=== PATIENT | male | born 1955 | race Caucasian/White ===

== ENCOUNTER 2018-10-04 13:16 | Day surgery (SDC) | payer OTHER ==
[2018-10-04] MEDS ORDERED: LIDOCAINE 2% (SDV) 5 ML INJ (15:24)
[2018-10-04] MEDS ORDERED: PROPOFOL 60 ML (15:24)
== END 2018-10-04 16:39 | disposition home or self-care (01) ==
LOC: GIL 13:16
DX: D12.4 Benign neoplasm of descending colon (principal); E11.9 Type 2 diabetes mellitus without complications; E78.5 Hyperlipidemia, unspecified; I10 Essential (primary) hypertension; J44.9 Chronic obstructive pulmonary disease, unspecified
CPT/HCPCS: 45380; 82962; 88305